=== PATIENT | male | born 1990 | race Two or more races ===

== ENCOUNTER 2016-06-11 11:28 | Outpatient (CLI) | payer BC, OTHER ==
[2016-06-11 12:08] LABS: *BILIRUBIN,URIN NEGATIVE (NEGATIVE); *BLOOD, URINE NEGATIVE (NEGATIVE); *CLARITY,URINE CLEAR (CLEAR); *COLOR,URINE YELLOW (YELLOW); *KETONES,URINE NEGATIVE (NEGATIVE); *PROTEIN,URINE 2+ (NEGATIVE); *UROBILINOGEN,URINE 0.2 E.U./dl (NORMAL); LEUKOCYTE ESTERASE ,URINE NEGATIVE (NEGATIVE); NITRITE, URINE NEGATIVE (NEGATIVE); PH,URINE 6.5 (5.0-8.0)
[2016-06-11 12:14] LABS: BASOPHILS % (AUTO) 0.5 % (0.0-2.0); EOSINOPHILS # (AUTO) 0.2 K/uL (0.0-0.7); EOSINOPHILS % (AUTO) 3.2 % (0.0-7.0); HEMATOCRIT 48.2 % (40-50); HEMOGLOBIN 16.9 G/DL (14.0-18.0); LYMPHOCYTES # (AUTO) 2.9 K/uL (20.0-40.0); LYMPHOCYTES % (AUTO) 38.1 % (20.5-51.5); MEAN CORPUSCULAR HEMOGLOBIN 28.8 UUG (27.0-31.0); MEAN CORPUSCULAR HGB CONC 35 g/dL (32.0-37.0); MEAN CORPUSCULAR VOLUME 82.3 FL (82.0-92.0); MONOCYTES # (AUTO) 0.4 K/uL (2.0-10.0); MONOCYTES % (AUTO) 4.9 % (0.0-11.0); NEUTROPHILS # (AUTO) 4.2 K/uL (1.8-8.9); NEUTROPHILS % (AUTO) 53.3 % (38.5-71.5); PLATELET COUNT (AUTO) 196 K/UL (150-450); RED BLOOD CELL COUNT(AUTO) 5.86 MIL/UL (4.7-6.1); RED CELL DISTRIBUTION WIDTH 11.9 % (11.5-14.5); WHITE BLOOD COUNT (AUTO) 7.7 K/UL (4.0-11.2)
[2016-06-11 12:23] LABS: UGLUCOSE 2+ (NEGATIVE)
[2016-06-11 12:26] LABS: ALBUMIN 4.3 g/dL (3.4-5.0); BILIRUBIN,TOTAL 0.3 mg/dL (0.2-1.0); CALCIUM 9.2 mg/dL (8.5-10.1); CREATININE 0.8 mg/dL (0.6-1.3); POTASSIUM 3.8 mmol/L (3.5-5.1); TOTAL PROTEIN, SERUM 7.6 g/dL (6.4-8.2)
[2016-06-11 12:28] LABS: BACTERIA,URINE FEW /HPF (NONE SEEN); RBC,URINE NONE SEEN /HPF (0-3); SQUAMOUS EPITHELIAL CELL,UR FEW /HPF (NONE SEEN); WBC,URINE 0-3 /HPF (0-3)
[2016-06-11 12:59] LABS: THYROID STIMULATING HORMONE 2.728 mIU/mL (0.358-3.740)
[2016-06-11 13:20] LABS: HIV-1 p24 ANTIGEN NON REACTIVE (NONREACTIVE); HIV-1/2 ANTIBODY NON REACTIVE (NONREACTIVE)
[2016-06-12 12:06] LABS: *TESTOSTERONE, SERUM 356 ng/dL (348-1197)
[2016-06-12 14:07] LABS: HCV AB 0.1 s/co ratio (0.0-0.9); HEPATITIS B CORE AB, TOTAL Negative (Negative); HEPATITIS B SURFACE AB Reactive (.); HEPATITIS B SURFACE AG Negative (Negative)
== END 2016-06-11 23:59 | disposition home or self-care (01) ==
LOC: LAB 11:28
DX: E11.00 Type 2 diabetes mellitus with hyperosmolarity without nonketotic hyperglycemic-hyperosmolar coma (NKHHC) (principal)
CPT/HCPCS: 36415; 82043; 82570; 84403; 84443; 85025; 85610; 85651; 86592; 86704; 86706; 86803; 87340; 87806

== ENCOUNTER 2016-11-18 08:12 | Outpatient (CLI) | payer BC, OTHER ==
[2016-11-18 09:51] LABS: BASOPHILS % (AUTO) 0.5 % (0.0-2.0); EOSINOPHILS # (AUTO) 0.4 K/uL (0.0-0.7); EOSINOPHILS % (AUTO) 4.9 % (0.0-7.0); HEMATOCRIT 47.1 % (36.7-47.1); HEMOGLOBIN 16.8 g/dL (12.5-16.3); LYMPHOCYTES # (AUTO) 2.7 K/uL (20.0-40.0); LYMPHOCYTES % (AUTO) 35.5 % (20.5-51.5); MEAN CORPUSCULAR HEMOGLOBIN 29.2 uug (23.8-33.4); MEAN CORPUSCULAR HGB CONC 36 g/dL (32.5-36.3); MEAN CORPUSCULAR VOLUME 81.9 fL (73.0-96.2); MONOCYTES # (AUTO) 0.4 K/uL (2.0-10.0); NEUTROPHILS # (AUTO) 4.1 K/uL (1.8-8.9); NEUTROPHILS % (AUTO) 54.1 % (38.5-71.5); PLATELET COUNT (AUTO) 218 K/uL (152-348); RED BLOOD CELL COUNT(AUTO) 5.75 MIL/uL (4.06-5.63); WHITE BLOOD COUNT (AUTO) 7.5 K/uL (3.6-10.2)
[2016-11-18 10:29] LABS: BILIRUBIN,TOTAL 0.4 mg/dL (0.2-1.0); CREATININE 0.8 mg/dL (0.6-1.3); TOTAL PROTEIN, SERUM 7.3 g/dL (6.4-8.2)
[2016-11-18 11:11] LABS: THYROID STIMULATING HORMONE 2.634 mIU/mL (0.358-3.740)
== END 2016-11-18 23:59 | disposition home or self-care (01) ==
LOC: LAB 08:12
PROVIDERS: ATTEND Internal Medicine Endocrinology, Diabetes & Metabolism
DX: E11.9 Type 2 diabetes mellitus without complications (principal)
CPT/HCPCS: 82043; 82570; 84443; 85025